=== PATIENT | female | born 2000 | race Caucasian/White ===

== ENCOUNTER 2024-01-22 11:33 | Outpatient (OUT) | payer OTHER, SELFPAY ==
--- NOTE | 2024-01-22 | XR_ITS ---
The [address] [address] Patient Name: LETA SCHULZ MRN: [id number] date: 2000 Sex: F Assigned Patient Location: Current Patient Location: Accession/Order Number: [id number] Exam Date: 01/22/2024 11:35 Report Date: 01/23/2024 08:29 At the request of: BYRON PARMAR Procedure: XR foot LT min 3V PROCEDURE: XR foot LT min 3V HISTORY: LEFT FOOT PAIN ; fourth toe pain and swelling COMPARISON: None. FINDINGS: BONES:No fracture, acute abnormality, or significant arthropathy. SOFT TISSUES:No visible soft tissue swelling. EFFUSION:None visible. OTHER: Negative. XR/XR foot LT min 3V IMPRESSION: 1. No acute bone abnormality or significant degenerative changes. Electronically authenticated by: MICHAEL WAYNE Date: 01/23/2024 08:29
== END 2024-01-22 11:34 | disposition home or self-care (01) ==
PROVIDERS: Visit Provider Podiatrist Foot & Ankle Surgery
DX: M79.672 Pain in left foot (principal)
CPT/HCPCS: 73630